=== PATIENT | male | born 1950 | race Caucasian/White ===

== ENCOUNTER 2025-08-02 16:13 | Emergency (ER) ==
[~2025-08-02] VITALS: Ht 170.2 cm; Wt 68.0 kg
[2025-08-02 16:20] VITALS: O2SAT 98
[2025-08-02 17:00] LABS: HEMATOCRIT. 38.8 % (42.0-52.0); HEMOGLOBIN. 13.3 g/dL (14.0-18.0); MEAN PLATELET VOLUME 7.9 fl (7.4-10.4); PLATELET 260 x1000/uL (130-400); RED BLOOD CELL COUNT 4.43 mill/uL (4.7-6.1); RED CELL DISTRIBUTION WIDTH 12.8 % (11.6-14.6)
[2025-08-02] MEDS: SODIUM CHLORIDE 0.9% 1,000 ML IV ONE (17:00)
[2025-08-02 17:18] LABS: PROTEIN TOTAL 7.4 g/dL (6.0-8.3); TROPONIN I HIGH SENSITIVITY 11 ng/L (3.0-53)
[2025-08-02 17:19] LABS: CREATININE 1.2 mg/dL (0.6-1.3); ETHANOL BLOOD < 10 mg/dL (<10); UREA NITROGEN BLOOD 17 mg/dL (9-23)
[2025-08-02 17:21] LABS: ASPARTATE AMINOTRANSFERASE 14 IU/L (<34); BILIRUBIN DIRECT 0.3 mg/dL (<=3.0); BILIRUBIN TOTAL 0.9 mg/dL (0.1-1.0)
[2025-08-02 17:31] LABS: BAND% 2.0 % (1.0-6.0); LYMPHOCYTES % MANUAL 3.0 % (20.0-50.0); MONOCYTES % MANUAL 7.0 % (2.0-8.0); NEUTROPHILS % MANUAL 88.0 % (45.0-75.0); PLATELET ESTIMATE NORMAL
[2025-08-02] MEDS: PIPERACILLIN/TAZO 3.375G/50ML 50 ML IV ONE (18:07)
[2025-08-02] MEDS: SODIUM CHLORIDE 0.9% (SEPSIS BOLUS) IV ONE (18:07)
[2025-08-02] MEDS: ONDANSETRON HCL 4MG/2ML INJ IV ONE (18:42)
[2025-08-02] MEDS: KETOROLAC 15MG/ML VIAL IV ONE (18:43)
[2025-08-02] MEDS: KETOROLAC 15MG/ML VIAL IV SCH (18:45)
[2025-08-02] MEDS: ONDANSETRON HCL 4MG/2ML INJ IV SCH (18:45)
[2025-08-02] MEDS: VANCOMYCIN 1G PREMIX 200 ML IV ONE (18:47)
[2025-08-02] MEDS: MAGNESIUM 2 G PREMIX 50 ML IV ONE (18:58)
[2025-08-02] MEDS ORDERED: DEXTROSE 50% WATER 50ML SYRINGE IV PRN (20:30)
[2025-08-02] MEDS ORDERED: KETOROLAC 15MG/ML VIAL IV PRN (20:30)
[2025-08-02] MEDS ORDERED: MORPHINE SULFATE 2 MG/ML INJ (NOT FOR IM USE) IV PRN (20:30)
[2025-08-02 20:43] LABS: LACTATE DEHYDROGENASE 405 IU/L (120-246)
[2025-08-02] MEDS ORDERED: IPRATROPIUM/ALBUTEROL 0.5-3(2.5)MG/3ML NEB HHN PRN (20:45)
[2025-08-02] MEDS ORDERED: MAGNESIUM/ALUMINUM HYDROXIDE/SIMETHICONE 30ML UDC PO PRN (20:45)
[2025-08-02] MEDS ORDERED: CLONIDINE 0.1MG TABLET PO PRN (20:45)
[2025-08-02] MEDS ORDERED: DOCUSATE SODIUM 100MG CAPSULE PO PRN (20:45)
[2025-08-02] MEDS ORDERED: ACETAMINOPHEN 325MG TABLET PO PRN ×2 (20:45)
[2025-08-02] MEDS ORDERED: NALOXONE HCL 0.4MG/ML VIAL IV PRN (20:45)
[2025-08-02] MEDS ORDERED: GUAIFENESIN 200MG/10ML SUGAR FREE UDC PO PRN (20:45)
[2025-08-02] MEDS ORDERED: ONDANSETRON HCL 4MG/2ML INJ IV PRN (20:45)
[2025-08-02] MEDS ORDERED: PIPERACILLIN/TAZOBACTAM 3.375 G in DEXTROSE 5% WATER 50 ML IV SCH (20:45)
[2025-08-02] MEDS ORDERED: BLOOD SUGAR DIAGNOSTIC STRIP TEST SCH (21:00)
[2025-08-02] MEDS ORDERED: LACTATED RINGERS 1,000 ML IV SCH (21:15)
[2025-08-02] MEDS: INSULIN LISPRO 100 UNITS/ML SUBCUT SCH (21:34)
[2025-08-02] MEDS: MAGNESIUM 2 G PREMIX 50 ML IV SCH (21:34)
[2025-08-02] MEDS: PANTOPRAZOLE SODIUM 40 MG/VIAL IV SCH (21:34)
[2025-08-02] MEDS: LORAZEPAM 0.5MG TABLET PO ONE (22:51)
[2025-08-02 23:03] LABS: INR 1.1
[2025-08-02 23:05] VITALS: BP 131/72; PULSE 107; RESP 18; TEMP 36.9; O2SAT 97
[2025-08-02 23:07] LABS: TROPONIN I HIGH SENSITIVITY 18 ng/L (3.0-53)
[2025-08-02 23:12] LABS: FOLIC ACID (FOLATE) SERUM 15.63 ng/mL (>5.38); VITAMIN B12 SERUM 406 pg/mL (211-911)
[2025-08-02] MEDS ORDERED: PIPERACILLIN/TAZO 3.375G/50ML IV SCH (23:30)
[2025-08-03] MEDS ORDERED: ENOXAPARIN 40MG/0.4ML SYR SUBCUT SCH (09:00)
== END 2025-08-02 23:13 | disposition admitted as inpatient to this hospital (09) ==
LOC: ER 16:13 → EDBEDREQ 19:56 → ENRESERV 20:52 → ER 23:13 → CMPBEDREQ 08-03 10:35
DX: A41.9 Sepsis, unspecified organism (principal); R65.21 Severe sepsis with septic shock; K81.0 Acute cholecystitis; N20.0 Calculus of kidney; E83.42 Hypomagnesemia; E11.9 Type 2 diabetes mellitus without complications; I10 Essential (primary) hypertension; Z79.899 Other long term (current) drug therapy
CPT/HCPCS: 80076; 80048; 80320; 82550; 82607; 82728; 82746; 82962; 83036; 83540; 83550; 83605; 83615; 83690; 83735; 85025; 85044; 85610; 85730; 87040; 84484; 36415; 84145; 71045; 73030; 70450; 72125; 74176; 76700; 93005; 96367; 96368; 96365; 96375; 99291; J1815; J1885; J3475; J2405; J2470; J2543; J3373; J7030; G0480

== ENCOUNTER 2025-08-03 11:43 | Inpatient (IN) ==
[2025-08-03] VITALS (13 sets, daily range): BP systolic 102–138; BP diastolic 67–95; PULSE 79–113; RESP 20–30; TEMP 36.8–36.8628; O2SAT 95–99
[~2025-08-03] VITALS: Ht 165.1 cm; Wt 77.1 kg
[2025-08-03] MEDS: METHYLPREDNISOLONE SOD SUCC 125MG/2ML (ACT-O-VIAL) IV NR (00:45)
[2025-08-03] MEDS: SODIUM CHLORIDE 0.9% 1,000 ML IV ONE (12:52)
[2025-08-03] MEDS: SODIUM CHLORIDE 0.9% (SEPSIS BOLUS) IV ONE (12:52)
[2025-08-03] MEDS: ACETAMINOPHEN 500MG TABLET PO ONE (13:04)
[2025-08-03] MEDS: PIPERACILLIN/TAZO 3.375G/50ML 50 ML IV STA (13:05)
[2025-08-03 13:07] LABS: BASOPHILS % 0.2 % (0.0-2.0); EOSINOPHILS % 0.0 % (0.0-5.0); HEMATOCRIT. 32.3 % (42.0-52.0); HEMOGLOBIN. 11.3 g/dL (14.0-18.0); LYMPHOCYTES % 1.6 % (20.0-50.0); MEAN PLATELET VOLUME 8.2 fl (7.4-10.4); MONOCYTES % 0.6 % (2.0-8.0); NEUTROPHILS % 97.6 % (40.0-76.0); PLATELET 186 x1000/uL (130-400); RED BLOOD CELL COUNT 3.71 mill/uL (4.7-6.1); RED CELL DISTRIBUTION WIDTH 13.0 % (11.6-14.6)
[2025-08-03 13:18] LABS: INR 1.2
[2025-08-03 13:19] LABS: BG DEOXYHEMOGLOBIN 19.6 % (0.0-5.0)
[2025-08-03 13:21] LABS: CREATININE 1.4 mg/dL (0.6-1.3); UREA NITROGEN BLOOD 23 mg/dL (9-23)
[2025-08-03 13:22] LABS: CREATININE 1.4 mg/dL (0.6-1.3); PROTEIN TOTAL 6.2 g/dL (6.0-8.3); UREA NITROGEN BLOOD 22 mg/dL (9-23)
[2025-08-03 13:23] LABS: ASPARTATE AMINOTRANSFERASE 29 IU/L (<34); BILIRUBIN TOTAL 0.7 mg/dL (0.1-1.0); PROTEIN TOTAL 6.2 g/dL (6.0-8.3)
[2025-08-03 13:24] LABS: ASPARTATE AMINOTRANSFERASE 28 IU/L (<34); BILIRUBIN DIRECT 0.3 mg/dL (<=3.0); BILIRUBIN TOTAL 0.7 mg/dL (0.1-1.0)
[2025-08-03] MEDS ORDERED: NOREPINEPHRINE 8MG/250ML PMX 250 ML IV ONE (16:45)
[2025-08-03] MEDS: NOREPINEPHRINE 8MG/250ML PMX 250 ML IV ONE (17:10)
[2025-08-03] MEDS: VANCOMYCIN 1.5GM/250ML 250 ML IV SCH (17:10)
[2025-08-03] MEDS ORDERED: CLONIDINE 0.1MG TABLET PO PRN (18:45)
[2025-08-03] MEDS ORDERED: ONDANSETRON HCL 4MG/2ML INJ IV PRN (18:45)
[2025-08-03] MEDS ORDERED: PIPERACILLIN/TAZOBACTAM 3.375 G in DEXTROSE 5% WATER 50 ML IV SCH (18:45)
[2025-08-03] MEDS ORDERED: DEXTROSE 50% WATER 50ML SYRINGE IV PRN (18:45)
[2025-08-03] MEDS ORDERED: ACETAMINOPHEN 325MG TABLET PO PRN (18:45)
[2025-08-03] MEDS ORDERED: NOREPINEPHRINE 8MG/250ML PMX 250 ML IV PRN (19:00)
[2025-08-03] MEDS: LACTATED RINGERS 1,000 ML IV SCH (20:41)
[2025-08-03] MEDS: FAMOTIDINE 20MG/2ML VIAL IV SCH (20:41)
[2025-08-03] MEDS: MAGNESIUM 2 G PREMIX 50 ML IV SCH (20:42)
[2025-08-03] MEDS: BLOOD SUGAR DIAGNOSTIC STRIP TEST SCH (21:00)
[2025-08-03] MEDS: PIPERACILLIN/TAZO 3.375G/50ML IV SCH (21:05)
[2025-08-03] MEDS: INSULIN LISPRO 100 UNITS/ML SUBCUT SCH (21:05)
[2025-08-03] MEDS ORDERED: IPRATROPIUM/ALBUTEROL 0.5-3(2.5)MG/3ML NEB HHN PRN (23:15)
[2025-08-03] MEDS: IPRATROPIUM/ALBUTEROL 0.5-3(2.5)MG/3ML NEB HHN PRN (23:55)
[2025-08-04] VITALS (41 sets, daily range): BP systolic 100–140; BP diastolic 60–97; PULSE 69–97; RESP 15–28; TEMP 36.2–36.8; O2SAT 93–99
[2025-08-04 00:22] LABS: TROPONIN I HIGH SENSITIVITY 31 ng/L (3.0-53)
[2025-08-04 00:23] LABS: CREATINE KINASE MB FRACTION 2.2 ng/mL (0.5-3.6)
[2025-08-04 05:10] LABS: HEMATOCRIT. 30.3 % (42.0-52.0); HEMOGLOBIN. 10.5 g/dL (14.0-18.0); MEAN PLATELET VOLUME 8.9 fl (7.4-10.4); PLATELET 151 x1000/uL (130-400); RED BLOOD CELL COUNT 3.45 mill/uL (4.7-6.1); RED CELL DISTRIBUTION WIDTH 13.2 % (11.6-14.6)
[2025-08-04 05:54] LABS: CREATINE KINASE MB FRACTION 0.9 ng/mL (0.5-3.6); CREATININE 1.8 mg/dL (0.6-1.3); TRIGLYCERIDE 149 mg/dL (0-150); UREA NITROGEN BLOOD 31 mg/dL (9-23)
[2025-08-04 05:55] LABS: LDL CHOLESTEROL 18 mg/dL (5-100)
[2025-08-04 05:59] LABS: T4 FREE 1.29 ng/dL (0.89-1.76)
[2025-08-04] MEDS: METHYLPREDNISOLONE SOD SUCC 125MG/2ML (ACT-O-VIAL) IV SCH (06:25)
[2025-08-04] MEDS: INSULIN LISPRO 100 UNITS/ML SUBCUT SCH (06:26)
[2025-08-04 06:49] LABS: TROPONIN I HIGH SENSITIVITY 19 ng/L (3.0-53)
[2025-08-04] MEDS ORDERED: NOREPINEPHRINE 8MG/250ML PMX 250 ML IV PRN (08:45)
[2025-08-04] MEDS: ENOXAPARIN 40MG/0.4ML SYR SUBCUT SCH (09:01)
[2025-08-04] MEDS: INSULIN GLARGINE 100 UNITS/ML SUBCUT SCH (09:03)
[2025-08-04 09:45] LABS: CLARITY URINE CLOUDY (CLEAR); COLOR URINE YELLOW (YELLOW); GLUCOSE URINE 2+ (NEGATIVE); KETONES URINE 1+ (NEGATIVE); LEUKOCYTE ESTERASE URINE NEGATIVE (NEGATIVE); NITRITE URINE NEGATIVE (NEGATIVE); OCCULT BLOOD URINE 1+ (NEGATIVE); PH URINE 5.0 (4.5-8.0); PROTEIN URINE 2+ (NEGATIVE); SPECIFIC GRAVITY URINE 1.020 (1.005-1.030); UROBILINOGEN URINE 0.2 E.U./dL (0.2-1.0)
[2025-08-04 10:00] LABS: URIC ACID CRYSTALS URINE 1+ /lpf
[2025-08-04 10:15] LABS: *AMPHETAMINES SCREEN URINE NEGATIVE (NEGATIVE); *BARBITURATES SCREEN URINE NEGATIVE (NEGATIVE); *BENZODIAZEPINES SCREEN URINE NEGATIVE (NEGATIVE); *COCAINE SCREEN URINE NEGATIVE (NEGATIVE)
[2025-08-04 10:16] LABS: CANNABINOID URINE SCREEN NEGATIVE (NEGATIVE); ECSTASY MDMA SCREEN URINE NEGATIVE (NEGATIVE); METHADONE URINE SCREEN NEGATIVE (NEGATIVE); OPIATES URINE SCREEN NEGATIVE (NEGATIVE); PHENCYCLIDINE URINE SCREEN NEGATIVE (NEGATIVE); RBC URINE 0-2 /hpf (0-2); WBC URINE 0-2 /hpf (0-2)
[2025-08-04 10:17] LABS: SQUAMOUS EPITHELIAL CELL URINE FEW /lpf (RARE/1+)
[2025-08-04 10:18] LABS: BACTERIA URINE 3+
[2025-08-04 10:21] LABS: PHOSPHORUS 2.4 mg/dL (2.5-4.9)
[2025-08-04 10:31] LABS: OSMOLALITY URINE 467 mOsm/kg (500-850)
[2025-08-04] MEDS: DOXYCYCLINE 100MG/100ML 100 ML IV SCH (10:54)
[2025-08-04 11:43] LABS: INFLUENZA TYPE A Presumptive Negative (Pres. Neg.); INFLUENZA TYPE B Presumptive Negative (Pres. Neg.)
[2025-08-04 11:44] LABS: RESPIRATORY SYNCYTIAL VIRUS Not Detected (Not Detectd)
[2025-08-04 13:20] LABS: BAND% 24.0 % (1.0-6.0); BASOPHILS % MANUAL 1.0 % (0.0-2.0); LYMPHOCYTES % MANUAL 3.0 % (20.0-50.0); MONOCYTES % MANUAL 1.0 % (2.0-8.0); NEUTROPHILS % MANUAL 71.0 % (45.0-75.0); PLATELET ESTIMATE NORMAL
[2025-08-04] MEDS: METHYLPREDNISOLONE SOD SUCC 40MG/ML (ACT-O-VIAL) IV SCH (13:35)
[2025-08-04] MEDS ORDERED: INSU100I28 SQ (14:51)
[2025-08-04] MEDS ORDERED: NAPR-677 MT (14:51)
[2025-08-04] MEDS ORDERED: METF-1150 MT (14:51)
[2025-08-04] MEDS: VANCOMYCIN 1GM/200ML PMX (BAXTER) IV SCH (19:51)
[2025-08-04] MEDS: ACETAMINOPHEN 325MG TABLET PO PRN (23:26)
[2025-08-05] VITALS: BP 146/74; PULSE 74; RESP 19; TEMP 36.4; O2SAT 95
[2025-08-05] MEDS: DEXT 5%/0.9% NACL 1,000 ML IV SCH (01:49)
[2025-08-05 04:00] VITALS: BP 156/85; PULSE 80; RESP 20; TEMP 36.8; O2SAT 97
[2025-08-05 08:00] VITALS: BP 124/60; PULSE 91; RESP 16; TEMP 36.1; O2SAT 90
[2025-08-05 08:11] LABS: HEMATOCRIT. 30.4 % (42.0-52.0); HEMOGLOBIN. 10.4 g/dL (14.0-18.0); MEAN PLATELET VOLUME 10.4 fl (7.4-10.4); PLATELET 116 x1000/uL (130-400); RED BLOOD CELL COUNT 3.49 mill/uL (4.7-6.1); RED CELL DISTRIBUTION WIDTH 13.5 % (11.6-14.6)
[2025-08-05 08:31] LABS: CREATININE 2.1 mg/dL (0.6-1.3); UREA NITROGEN BLOOD 43 mg/dL (9-23)
[2025-08-05 08:32] LABS: PROTEIN TOTAL 5.6 g/dL (6.0-8.3)
[2025-08-05 08:33] LABS: ASPARTATE AMINOTRANSFERASE 18 IU/L (<34); BILIRUBIN TOTAL 0.4 mg/dL (0.1-1.0); PHOSPHORUS 2.0 mg/dL (2.5-4.9)
[2025-08-05 09:17] LABS: SODIUM URINE RANDOM 42.0 mEq/L
[2025-08-05 09:25] LABS: CREATININE URINE RANDOM 88.1 mg/dL
[2025-08-05 12:00] VITALS: BP 139/78; PULSE 84; RESP 16; TEMP 36.4; O2SAT 95
[2025-08-05 16:00] VITALS: BP 135/75; PULSE 85; RESP 18; TEMP 36.7; O2SAT 96
[2025-08-05] MEDS: POTASSIUM PHOSPHATE 15 MMOL in SODIUM CHLORIDE 0.9% 250 ML IV NR (17:52)
[2025-08-05 18:08] LABS: BAND% 1.0 % (1.0-6.0); LYMPHOCYTES % MANUAL 1.0 % (20.0-50.0); MONOCYTES % MANUAL 1.0 % (2.0-8.0); NEUTROPHILS % MANUAL 97.0 % (45.0-75.0); PLATELET ESTIMATE DECREASED
[2025-08-05 20:00] VITALS: BP 117/70; PULSE 74; RESP 18; TEMP 34.7; O2SAT 100
[2025-08-06] VITALS: BP 122/74; PULSE 72; RESP 18; TEMP 36.2; O2SAT 98
[2025-08-06] MEDS: METHYLPREDNISOLONE SOD SUCC 40MG/ML (ACT-O-VIAL) IV SCH (02:49)
[2025-08-06 04:00] VITALS: BP 110/67; PULSE 64; RESP 18; TEMP 36.3; O2SAT 97
[2025-08-06 06:31] LABS: HEMATOCRIT. 28.0 % (42.0-52.0); HEMOGLOBIN. 9.6 g/dL (14.0-18.0); MEAN PLATELET VOLUME 10.1 fl (7.4-10.4); PLATELET 93 x1000/uL (130-400); RED BLOOD CELL COUNT 3.22 mill/uL (4.7-6.1); RED CELL DISTRIBUTION WIDTH 13.4 % (11.6-14.6)
[2025-08-06 06:42] LABS: UREA NITROGEN BLOOD 54 mg/dL (9-23)
[2025-08-06 06:43] LABS: CREATININE 1.9 mg/dL (0.6-1.3)
[2025-08-06 06:44] LABS: PROTEIN TOTAL 5.3 g/dL (6.0-8.3)
[2025-08-06 06:45] LABS: ASPARTATE AMINOTRANSFERASE 9 IU/L (<34); BILIRUBIN DIRECT 0.1 mg/dL (<=3.0); BILIRUBIN TOTAL 0.4 mg/dL (0.1-1.0); PHOSPHORUS 3.5 mg/dL (2.5-4.9)
[2025-08-06 07:40] VITALS: BP 123/73; PULSE 70; RESP 16; TEMP 36.4; O2SAT 100
[2025-08-06] MEDS ORDERED: IOHEXOL-300 100 ML BOTTLE ONE (08:40)
[2025-08-06] MEDS ORDERED: DEXTROSE 50% WATER 50ML SYRINGE IV PRN (09:00)
[2025-08-06] MEDS: INSULIN GLARGINE 100 UNITS/ML SUBCUT SCH ×2 (09:20→21:23)
[2025-08-06 12:00] VITALS: BP 134/79; PULSE 65; RESP 16; TEMP 36.2; O2SAT 100
[2025-08-06] MEDS: BLOOD SUGAR DIAGNOSTIC STRIP TEST SCH (12:10)
[2025-08-06] MEDS: INSULIN LISPRO 100 UNITS/ML SUBCUT SCH (13:05)
[2025-08-06 16:00] VITALS: BP 137/77; PULSE 68; RESP 18; TEMP 36.7; O2SAT 100
[2025-08-06] MEDS: CALCIUM GLUCONATE 100MG/ML 10ML VIAL IV SCH (17:58)
[2025-08-06 20:00] VITALS: BP 135/81; PULSE 77; RESP 18; TEMP 36.5; O2SAT 100
[2025-08-06 20:30] LABS: BAND% 1.0 % (1.0-6.0); LYMPHOCYTES % MANUAL 2.0 % (20.0-50.0); MONOCYTES % MANUAL 2.0 % (2.0-8.0); NEUTROPHILS % MANUAL 95.0 % (45.0-75.0)
[2025-08-06 20:31] LABS: PLATELET ESTIMATE DECREASED
[2025-08-07] VITALS: BP 148/83; PULSE 78; RESP 20; TEMP 36.5; O2SAT 100
[2025-08-07 00:32] LABS: TROPONIN I HIGH SENSITIVITY 8 ng/L (3.0-53)
[2025-08-07 08:07] VITALS: BP 158/79; PULSE 67; RESP 18; TEMP 36.6; O2SAT 100
[2025-08-07] MEDS: METHYLPREDNISOLONE SOD SUCC 40MG/ML (ACT-O-VIAL) IV SCH (08:18)
[2025-08-07] MEDS ORDERED: METR-167 MT (11:59)
[2025-08-07] MEDS ORDERED: INSU100I28 SQ (11:59)
[2025-08-07] MEDS ORDERED: LEVO-65 MT (11:59)
[2025-08-07] MEDS: DOCUSATE SODIUM 100MG CAPSULE PO PRN (13:23)
[2025-08-07 13:43] LABS: HEMATOCRIT. 31.1 % (42.0-52.0); HEMOGLOBIN. 10.4 g/dL (14.0-18.0); MEAN PLATELET VOLUME 10.0 fl (7.4-10.4); PLATELET 108 x1000/uL (130-400); RED BLOOD CELL COUNT 3.53 mill/uL (4.7-6.1); RED CELL DISTRIBUTION WIDTH 13.8 % (11.6-14.6)
[2025-08-07 14:00] LABS: CREATININE 2.2 mg/dL (0.6-1.3)
[2025-08-07 14:01] LABS: UREA NITROGEN BLOOD 54.0 mg/dL (9-23)
[2025-08-07 14:39] VITALS: BP 130/75; PULSE 61; RESP 16; TEMP 97.8
[2025-08-07 15:35] VITALS: BP 129/64; PULSE 91; RESP 20; TEMP 36.4; O2SAT 92
[2025-08-07 19:43] LABS: LYMPHOCYTES % MANUAL 2.0 % (20.0-50.0); MONOCYTES % MANUAL 3.0 % (2.0-8.0); NEUTROPHILS % MANUAL 95.0 % (45.0-75.0); PLATELET ESTIMATE DECREASED
== END 2025-08-07 18:01 | disposition home or self-care (01) | DRG 871 ==
LOC: ER 12:00 → MICUNO 17:20 → EDBEDREQTM 17:24 → EDBEDREQ 17:24 → 7WST 08-04 14:59
PROVIDERS: ADMIT Internal Medicine; ATTEND Internal Medicine
DX: A41.51 Sepsis due to Escherichia coli [E. coli] (principal); G93.41 Metabolic encephalopathy; R65.21 Severe sepsis with septic shock; N17.0 Acute kidney failure with tubular necrosis; I69.354 Hemiplegia and hemiparesis following cerebral infarction affecting left non-dominant side; K80.00 Calculus of gallbladder with acute cholecystitis without obstruction; E83.39 Other disorders of phosphorus metabolism; N39.0 Urinary tract infection, site not specified; B96.89 Other specified bacterial agents as the cause of diseases classified elsewhere; J45.901 Unspecified asthma with (acute) exacerbation; E11.9 Type 2 diabetes mellitus without complications; D64.9 Anemia, unspecified; I10 Essential (primary) hypertension; T50.905A Adverse effect of unspecified drugs, medicaments and biological substances, initial encounter; M19.012 Primary osteoarthritis, left shoulder; M75.100 Unspecified rotator cuff tear or rupture of unspecified shoulder, not specified as traumatic; J45.909 Unspecified asthma, uncomplicated; E83.42 Hypomagnesemia; N28.1 Cyst of kidney, acquired; N20.0 Calculus of kidney; K57.30 Diverticulosis of large intestine without perforation or abscess without bleeding; E78.5 Hyperlipidemia, unspecified; Z96.652 Presence of left artificial knee joint; K59.09 Other constipation; Z79.4 Long term (current) use of insulin; Y92.89 Other specified places as the place of occurrence of the external cause
CPT/HCPCS: 36415; 71045; 74177; 76700; 78227; 80048; 80053; 80061; 80076; 80202; 80305; 81003; 82270; 82375; 82550; 82553; 82570; 82803; 82962; 83036; 83605; 83735; 83880; 83935; 84100; 84145; 84300; 84439; 84443; 84481; 84484; 85025; 86850; 86900; 87015; 87045; 87077; 87186; 87420; 87427; 87449; 87493; 87804; 93005; 93970; 94070; 94640; 94664; 96365; 97161; 97165; 98960; 99291; A4606; A4615; A9537; J0612; J1308; J1650; J1815; J2543; J2919; J3373; J3475; J3490; J7030; J7042; J7050; Q9967